=== PATIENT | male | born 1970 | race Caucasian/White ===

== ENCOUNTER 2022-03-15 16:30 | Observation (INO) ==
[2022-03-15] MEDS ORDERED: IOPAMIDOL 100 ML BOTTLE IV ONE (16:31)
[2022-03-15] MEDS ORDERED: ONDANSETRON 4 MG/2 ML VIAL IV ONE ×2 (16:43→20:12)
[2022-03-15] MEDS ORDERED: morphine 4 MG/ML VIAL IV ONE (16:43)
[2022-03-15] MEDS ORDERED: 0.9 % SODIUM CHLORIDE 2,000 ML IV ONE (16:43)
[2022-03-15 17:13] LABS: POC Calcium, Ionized 1.09 (1.16-1.32); POC Creatinine 0.8 (0.6-1.2); POC Potassium 4.5 (3.3-5.1)
[2022-03-15 18:20] LABS: Basophils # (Auto) 0.01 K/mcL (0.00-0.30); Basophils % (Auto) 0.1 % (0.0-2.0); Eosinophils # (Auto) 0.02 K/mcL (0.00-0.70); Eosinophils % (Auto) 0.3 % (0.0-7.0); Hematocrit 46.4 % (40.1-51.0); Hemoglobin 15.5 g/dL (13.7-17.5); Lymphocytes # (Auto) 0.95 K/mcL (1.50-4.80); Lymphocytes % (Auto) 13.2 % (15.5-49.0); Mean Cell Volume 94.9 fL (80.0-100.0); Mean Corpuscular HGB Conc 33.4 g/dL (31.0-36.0); Mean Platelet Volume 10.3 fL (8.8-12.5); Monocytes # (Auto) 0.48 K/mcL (0.10-0.90); Monocytes % (Auto) 6.7 % (1.0-12.0); Neutrophils % (Auto) 79.3 % (38.0-78.0); Platelet Count 212 K/mcL (140-440); RBC 4.89 M/mcL (4.63-6.08); Red Cell Distribution Width 12.6 % (11.5-14.5); WBC 7.2 K/mcL (4.5-11.0)
--- NOTE | 2022-03-15 18:24 | Emergency Department Note ---
HPI General Chief complaint: Nausea/Vomiting/Diarrhea Stated complaint: bowell obstruction Time Seen by Provider: 03/15/22 16:39 Source: patient Mode of arrival: ambulatory Limitations: no limitations History of Present Illness HPI Narrative: Mekhi Orellana is a 51-year-old male who presents emergency department from minor care complaining of "a bowel obstruction." The patient reports he began vomiting at 0 230 this morning, approximately 10 bouts until noon today. He denies any hematemesis or coffee-ground emesis. He states he additionally had a few bouts of diarrhea, that was also gone by noon. The patient reports lateral abdominal pain, and points toward his sacrum, where he underwent incision and drainage of pilonidal abscess yesterday. The patient additionally reports bloating and lower abdominal pain. He states he was able to take sips of Powerade and water, and the stay down for a few hours. He reports he was sent to the ED from minor care after an x-ray without oral contrast, due to provider concern for a bowel obstruction. The patient denies black and bloody stools, syncope, dizziness, heart palpitations, and all other acute complaints at this time. During history, the patient states to his , "will you please just tell her, I don't want to talk." Related Data Previous Rx's Medication Instructions Recorded levothyroxine 150 mcg capsule 150 mcg PO QDAY #90 caps 02/01/22 Allergies Allergy/AdvReac Type Severity Reaction Status Date / Time No Known Allergies Allergy Unknown Unknown Verified 03/15/22 16:35 Review of Systems ROS ROS Narrative: A comprehensive review of systems is obtained and found to be negative, except as per HPI. [facility] Narrative Patient History Narrative: Narrative: Medical/Surgical/Family History All Active Problems (Updated 03/15/22 @ 20:49 by Hailey Hubbard PA-C) Partial obstruction of small intestine (Acute) Small bowel obstruction (Acute) Sinusitis (Acute) Fatigue (Chronic) Knee pain (Chronic) Low back pain (Acute) Pilonidal abscess (Acute) Hypovitaminosis D (Chronic) Elevated ferritin level (Chronic) Hypogonadism in male (Chronic) Hyperthyroidism (Chronic) Hyperlipidemia (Chronic) Graves disease (Chronic) Medical History Fatigue Graves disease Recorded 11/19/05 Hyperlipidemia Hyperthyroidism Graves Disease Knee pain Low back pain Surgical History H/O hand surgery Right pointer finger reattached following table saw accident H/O knee surgery Right knee x5 No pertinent past surgical history Family History Father Idiopathic pulmonary fibrosis Stroke Aunt Idiopathic pulmonary fibrosis Sister Idiopathic pulmonary fibrosis Lupus Crohn disease Other No pertinent family history Social History Smoking Status: Smokeless tobacco Alcohol Intake Frequency: a few times a week Substance Use: does not use Exam Narrative Narrative: General: Alert, conversant, NAD HEENT: Mask in place per COVID protocol, EOMI, PERRL, anicteric sclerae Chest/respiratory: Symmetric chest wall expansion, CTAB, adequate tidal volume and respiratory effort, speaks in complete paragraphs without difficulty CV: RRR/no MRG, cap refill less than 2 seconds; palpable peripheral pulses Abdomen/GI: NABs, soft, ND, no scars noted; midline lower abdominal TTP without rebound or guarding Extremities/MSK: MAEW, normal gait Skin: Normal warm and dry, no jaundice General Limitations: no limitations Course Vital Signs Vital signs: Vital Signs Temperature 98.6 F 03/15/22 16:32 Pulse Rate 102 H 03/15/22 16:32 Respiratory Rate 18 03/15/22 16:32 Blood Pressure 109/76 03/15/22 16:32 Pulse Oximetry (%) 94 03/15/22 16:32 Oxygen Delivery Method 03/15/22 16:32 Temperature 98.6 F 03/15/22 16:32 Pulse Rate 85 03/15/22 17:46 Respiratory Rate 18 03/15/22 16:32 Blood Pressure 118/68 03/15/22 17:46 Pulse Oximetry (%) 94 03/15/22 17:46 Oxygen Delivery Method 03/15/22 16:32 [facility] MDM Narrative Medical decision making narrative: Mekhi Orellana is a 51-year-old male who presents emergency department c omplaining of cute onset abdominal pain at 230 this morning, with accompanying nausea, vomiting, and diarrhea. These associated symptoms resolved by about noon today. The patient has been anorexic and has only had a couple sips of water and Powerade that have stayed down. Other than an elevated blood glucose, the patient's labs are largely normal. CT exam with contrast of the abdomen and pelvis reveals a mild partial small bowel obstruction in the distal jejunum. Admission and treatment for this problem is discussed with the patient and his at length. This includes discussion of an NG tube to low intermittent wall suction, admission, and follow-up water-soluble contrast study. The patient states he does not feel he wishes to be admitted and wishes to discuss this with his . After their discussion, the patient states he agrees to admission, and Dr. Spring of the general surgery service is contacted. After discussing the patient's case in detail with Dr. Spring, he agrees to see the patient and admit him for treatment of a partial small bowel obstruction. Sepsis Sepsis Identified: No Lab Data Lab results reviewed: Yes I reviewed the patient's lab results. Result diagrams: 03/15/22 17:38 03/15/22 17:38 Labs: Lab Results 03/15/22 03/15/22 03/15/22 Range/Units 17:09 17:38 17:38 WBC 7.2 (4.5-11.0) K/mcL RBC 4.89 (4.63-6.08) M/mcL Hgb 15.5 (13.7-17.5) g/dL Hct 46.4 (40.1-51.0) % POC Hct 50.0 (41-55) MCV 94.9 (80.0-100.0) fL MCH 31.7 (26.0-34.0) pg MCHC 33.4 (31.0-36.0) g/dL RDW 12.6 (11.5-14.5) % Plt Count 212 (140-440) K/mcL MPV 10.3 (8.8-12.5) fL Immature Gran % (Auto) 0.4 (0.0-0.5) % Neut % (Auto) 79.3 H (38.0-78.0) % Lymph % (Auto) 13.2 L (15.5-49.0) % Parker % (Auto) 6.7 (1.0-12.0) % Eos % (Auto) 0.3 (0.0-7.0) % Baso % (Auto) 0.1 (0.0-2.0) % Lymph # (Auto) 0.95 L (1.50-4.80) K/mcL Parker # (Auto) 0.48 (0.10-0.90) K/mcL Eos # (Auto) 0.02 (0.00-0.70) K/mcL Baso # (Auto) 0.01 (0.00-0.30) K/mcL Immature Gran # 0.03 (0.00-0.05) K/mcl Absolute Neutrophils 5.70 (1.80-8.00) K/mcL VBG Lactic Acid 1.0 (0.5-2.0) mmol/L POC Sodium 138 (133-145) Sodium 135 (133-145) mmol/L POC Potassium 4.5 (3.3-5.1) Potassium 3.6 (3.3-5.1) mmol/L POC Chloride 101 (96-108) Chloride 97 (96-108) mmol/L Carbon Dioxide 28 (22-30) mmol/L POC Total CO2 28.0 (22-30) Anion Gap 10.0 (8.0-16.0) POC BUN 26 H (6-20) BUN 16 (6-20) mg/dL Creatinine 0.8 (0.7-1.2) mg/dL POC Creatinine 0.8 (0.6-1.2) GFR Calculation 102 Glucose 125 H (70-105) mg/dL POC Glucose 135 H (70-105) Calcium 8.4 L (8.6-10.4) mg/dL POC WB Ioniz Calcium 1.09 L (1.16-1.32) Total Bilirubin 1.3 H (0.1-1.0) mg/dL AST 15 (<40) U/L ALT 21 (<40) U/L Alkaline Phosphatase 73 (39-117) U/L Total Protein 6.9 (5.9-8.4) gm/dL Albumin 3.6 (3.2-5.2) gm/dL Globulin 3.3 (2.2-3.7) gm/dL Albumin/Globulin Ratio 1.1 (1.0-2.3) Lipase 14 (7-60) U/L POC Troponin I (0.00-0.08) 03/15/22 Range/Units 17:42 WBC (4.5-11.0) K/mcL RBC (4.63-6.08) M/mcL Hgb (13.7-17.5) g/dL Hct (40.1-51.0) % POC Hct (41-55) MCV (80.0-100.0) fL MCH (26.0-34.0) pg MCHC (31.0-36.0) g/dL RDW (11.5-14.5) % Plt Count (140-440) K/mcL MPV (8.8-12.5) fL Immature Gran % (Auto) (0.0-0.5) % Neut % (Auto) (38.0-78.0) % Lymph % (Auto) (15.5-49.0) % Parker % (Auto) (1.0-12.0) % Eos % (Auto) (0.0-7.0) % Baso % (Auto) (0.0-2.0) % Lymph # (Auto) (1.50-4.80) K/mcL Parker # (Auto) (0.10-0.90) K/mcL Eos # (Auto) (0.00-0.70) K/mcL Baso # (Auto) (0.00-0.30) K/mcL Immature Gran # (0.00-0.05) K/mcl Absolute Neutrophils (1.80-8.00) K/mcL VBG Lactic Acid (0.5-2.0) mmol/L POC Sodium (133-145) Sodium (133-145) mmol/L POC Potassium (3.3-5.1) Potassium (3.3-5.1) mmol/L POC Chloride (96-108) Chloride (96-108) mmol/L Carbon Dioxide (22-30) mmol/L POC Total CO2 (22-30) Anion Gap (8.0-16.0) POC BUN (6-20) BUN (6-20) mg/dL Creatinine (0.7-1.2) mg/dL POC Creatinine (0.6-1.2) GFR Calculation Glucose (70-105) mg/dL POC Glucose (70-105) Calcium (8.6-10.4) mg/dL POC WB Ioniz Calcium (1.16-1.32) Total Bilirubin (0.1-1.0) mg/dL AST (<40) U/L ALT (<40) U/L Alkaline Phosphatase (39-117) U/L Total Protein (5.9-8.4) gm/dL Albumin (3.2-5.2) gm/dL Globulin (2.2-3.7) gm/dL Albumin/Globulin Ratio (1.0-2.3) Lipase (7-60) U/L POC Troponin I < 0.02 (0.00-0.08) Radiology Data Radiology results reviewed: Yes I reviewed the patient's radiology results. Radiology results narrative: Date of Service:03/15/22 Procedure(s):CT abdomen pelvis w con CLINICAL INFORMATION: Abdominal pain COMPARISON: None. TECHNIQUE: Following enteric contrast, 80 cc of Isovue-370 were injected intravenously, and 60 seconds later, 0.625 mm helical slices were obtained from the mid heart through the subtrochanteric regions. Following reconstruction, 2.5 mm sagittal, coronal and axial reformatted images were processed and reviewed at bone, lung and soft tissue windows. Five minutes later, 0.625 mm helical slices were obtained from the mid heart through the kidneys and viewed at soft tissue windows.The exam was performed using radiation dose optimization techniques including, but not limited to, automated exposure control, adjustment of the mA and/or kV according to patient size and use of iterative reconstruction technique. FINDINGS: The lung bases show scattered atelectasis.. No effusions. The visualized heart is normal in size with no calcific plaque in the coronary arteries.. Abdominal images show mild fatty change within the liver, but no focal hepatic lesions. A few tiny stones layer within the gallbladder neck. The gallbladder is, otherwise, normal. Intrahepatic and common bile ducts are normal caliber: CBD is 5 mm. The pancreas, both adrenal glands, spleen and aorta, including aortic branches, are normal in size, configuration and attenuation without focal lesion. A 20 mm cyst present anterior mid right kidney and a 3.8 cm simple cyst lateral mid left kidney noted. There is no significant renal abnormality. There is no free air, free fluid or adenopathy Pelvic images show prostate, seminal vesicles and urinary bladder are normal. Multiple sigmoid diverticula appreciated but no evidence of diverticulitis. The remaining large bowel is normal. The stomach, duodenum and jejunum are mildly dilated to a transition point in the distal jejunum the right mesenteric cavity best seen on coronal image 76. There may be adhesions or strictures in this region. The distal small bowel is decompressed and there is minimal stool within the colon. Bone windows show chronic bilateral L5-S1 spondylolysis with 3 mm spondylolisthesis. It results in mild bilateral IV foraminal narrowing. No other osseous abnormalities. IMPRESSION: 1. Mild partial small bowel obstruction likely due to adhesions or stricture in the distal jejunum located within the right mesenteric cavity. No evidence of free fluid or free air. 2. Cholelithiasis. Few tiny stones seen within the gallbladder. 3. Mild fatty change within the liver. 4. Chronic bilateral L5-S1 spondylolysis. Interpreted and Authenticated by: Navin Figueroa 03/15/22 Discharge Plan Patient/Caregiver Discharge Instructions Pt seen by MACARONI PRESS OPERATOR/PA only: Yes Clinical Impression: Partial obstruction of small intestine Patient Disposition: Still a Patient Follow up with: Terrence Cote MD [Primary Care Provider] - Prescriptions: No Action levothyroxine 150 mcg capsule 150 mcg PO QDAY Qty: 90 0RF
--- NOTE | 2022-03-15 18:27 | Cat Scan Report ---
CLINICAL INFORMATION: Abdominal pain COMPARISON: None. TECHNIQUE: Following enteric contrast, 80 cc of Isovue-370 were injected intravenously, and 60 seconds later, 0.625 mm helical slices were obtained from the mid heart through the subtrochanteric regions. Following reconstruction, 2.5 mm sagittal, coronal and axial reformatted images were processed and reviewed at bone, lung and soft tissue windows. Five minutes later, 0.625 mm helical slices were obtained from the mid heart through the kidneys and viewed at soft tissue windows.The exam was performed using radiation dose optimization techniques including, but not limited to, automated exposure control, adjustment of the mA and/or kV according to patient size and use of iterative reconstruction technique. FINDINGS: The lung bases show scattered atelectasis.. No effusions. The visualized heart is normal in size with no calcific plaque in the coronary arteries.. Abdominal images show mild fatty change within the liver, but no focal hepatic lesions. A few tiny stones layer within the gallbladder neck. The gallbladder is, otherwise, normal. Intrahepatic and common bile ducts are normal caliber: CBD is 5 mm. The pancreas, both adrenal glands, spleen and aorta, including aortic branches, are normal in size, configuration and attenuation without focal lesion. A 20 mm cyst present anterior mid right kidney and a 3.8 cm simple cyst lateral mid left kidney noted. There is no significant renal abnormality. There is no free air, free fluid or adenopathy Pelvic images show prostate, seminal vesicles and urinary bladder are normal. Multiple sigmoid diverticula appreciated but no evidence of diverticulitis. The remaining large bowel is normal. The stomach, duodenum and jejunum are mildly dilated to a transition point in the distal jejunum the right mesenteric cavity best seen on coronal image 76. There may be adhesions or strictures in this region. The distal small bowel is decompressed and there is minimal stool within the colon. Bone windows show chronic bilateral L5-S1 spondylolysis with 3 mm spondylolisthesis. It results in mild bilateral IV foraminal narrowing. No other osseous abnormalities. IMPRESSION: 1. Mild partial small bowel obstruction likely due to adhesions or stricture in the distal jejunum located within the right mesenteric cavity. No evidence of free fluid or free air. 2. Cholelithiasis. Few tiny stones seen within the gallbladder. 3. Mild fatty change within the liver. 4. Chronic bilateral L5-S1 spondylolysis. Interpreted and Authenticated by: Navin Figueroa 03/15/22
[2022-03-15 18:40] LABS: ALT/SGPT 21 U/L (<40); AST/SGOT 15 U/L (<40); Albumin 3.6 gm/dL (3.2-5.2); Albumin/Globulin Ratio 1.1 (1.0-2.3); Alkaline Phosphatase 73 U/L (39-117); Bilirubin,Total 1.3 mg/dL (0.1-1.0); Blood Urea Nitrogen 16 mg/dL (6-20); Calcium 8.4 mg/dL (8.6-10.4); Carbon Dioxide 28 mmol/L (22-30); Chloride 97 mmol/L (96-108); Globulin 3.3 gm/dL (2.2-3.7); Glomerular Filtration Rate 102; Glucose 125 mg/dL (70-105)
--- NOTE | 2022-03-15 20:06 | General Surg History&Physical ---
HPI History of Present Illness Patient information: Note initiated : 03/15/22 at 8:03 pm Service Date, if different from initiated Date: [] Patient: Mekhi Orellana a 51 y/o M admitted on for bowell obstruction. Chief Complaint: [] Chief complaint: Abdominal pain, nausea vomiting History of present illness: Mr. Orellana is a 51 year old M who presents with 1 day history of progressive nausea and emesis along with diarrhea. He reports that he has some periumbilical abdominal pain which is gradually gotten worse throughout the day. Patient denies any prior history of similar sort of pain or problems. Patient had a pilonidal cyst drained in urgent care yesterday which she is on sure whether this is contributing to his current problems. He denies fevers or chills, he does have a history of ulcer disease which has been treated in the past. He denies any current or past surgical history. Review of Systems Review of systems: All systems are reviewed, negative other than above PFSH PFSH All Active Problems Small bowel obstruction (Acute) Sinusitis (Acute) Fatigue (Chronic) Knee pain (Chronic) Low back pain (Acute) Pilonidal abscess (Acute) Hypovitaminosis D (Chronic) Elevated ferritin level (Chronic) Hypogonadism in male (Chronic) Hyperthyroidism (Chronic) Hyperlipidemia (Chronic) Graves disease (Chronic) Medical History Fatigue Graves disease Recorded 11/19/05 Hyperlipidemia Hyperthyroidism Graves Disease Knee pain Low back pain Surgical History H/O hand surgery Right pointer finger reattached following table saw accident H/O knee surgery Right knee x5 No pertinent past surgical history Family History Father Idiopathic pulmonary fibrosis Stroke Aunt Idiopathic pulmonary fibrosis Sister Idiopathic pulmonary fibrosis Lupus Crohn disease Other No pertinent family history Social History household members: spouse lives independently: Yes marital status: occupational status: employed occupation: [employer] smoking status: Smokeless tobacco Smokeless tobacco user details: 1 can per 3 days alcohol intake frequency: a few times a week substance use type: does not use MEDS/ALLERGIES Home Medications and Allergies Home Medications Medication Instructions Recorded Confirmed Type levothyroxine 150 mcg capsule 150 mcg PO QDAY #90 caps 02/01/22 03/15/22 Rx Allergies Allergy/AdvReac Type Severity Reaction Status Date / Time No Known Allergies Allergy Unknown Unknown Verified 03/15/22 16:35 Physical Examination Vital Signs Vital signs: Temp Pulse Resp BP Pulse Ox O2 Del Method 98.6 F 85 18 136/86 94 03/15/22 16:32 03/15/22 17:46 03/15/22 16:32 03/15/22 19:31 03/15/22 17:46 03/15/22 16:32 General physical appearance General physical exam: well developed, well nourished and no distress Eyes Eye exam: PERRL and normal ocular movement ENT ENT exam: normal pinna, normal nares, normal mucosa, no hearing loss and no congestion Head Head exam IM: Present atraumatic and normocephalic Neck Neck exam: no masses, no bruits, trachea midline, no lymphadenopathy and no venous distension Cardiovascular Cardiovascular exam IM: Present normal rate and rhythm Respiratory Respiratory exam: normal expansion, normal respiratory effort, clear to percussion and clear to auscultation Abdomen Abdomen: Present soft, non tender and bowel sounds Hernia: Present none Genitourinary Genitourinary (Male): Present normal penis with no external lesions Rectum Rectum: Present normal sphincter tone, no hemorrhoids, no tenderness, no masses and no bleeding Integumentary Integumentary: Present no rash, no growths and no abnormal pigmentation Neurologic Neurologic: Present normal coordination and normal sensation Musculoskeletal Musculoskeletal: Present normal gait and normal posture Psychiatric Psychiatric: Present oriented to time, oriented to person, oriented to place, speech is normal and memory intact Results Labs Result diagrams: 03/15/22 17:38 03/15/22 17:38 Labs: Abnormal lab results 03/15/22 03/15/22 03/15/22 Range/Units 17:09 17:38 17:38 Neut % (Auto) 79.3 H (38.0-78.0) % Lymph % (Auto) 13.2 L (15.5-49.0) % Lymph # (Auto) 0.95 L (1.50-4.80) K/mcL POC BUN 26 H (6-20) Glucose 125 H (70-105) mg/dL POC Glucose 135 H (70-105) Calcium 8.4 L (8.6-10.4) mg/dL POC WB Ioniz Calcium 1.09 L (1.16-1.32) Total Bilirubin 1.3 H (0.1-1.0) mg/dL Diabetes panel 03/15/22 Range/Units 17:38 Sodium 135 (133-145) mmol/L Potassium 3.6 (3.3-5.1) mmol/L Chloride 97 (96-108) mmol/L Carbon Dioxide 28 (22-30) mmol/L BUN 16 (6-20) mg/dL Creatinine 0.8 (0.7-1.2) mg/dL Glucose 125 H (70-105) mg/dL Calcium 8.4 L (8.6-10.4) mg/dL AST 15 (<40) U/L ALT 21 (<40) U/L Alkaline Phosphatase 73 (39-117) U/L Total Protein 6.9 (5.9-8.4) gm/dL Albumin 3.6 (3.2-5.2) gm/dL Calcium panel 03/15/22 Range/Units 17:38 Calcium 8.4 L (8.6-10.4) mg/dL Albumin 3.6 (3.2-5.2) gm/dL Pituitary panel 03/15/22 Range/Units 17:38 Sodium 135 (133-145) mmol/L Potassium 3.6 (3.3-5.1) mmol/L Chloride 97 (96-108) mmol/L Carbon Dioxide 28 (22-30) mmol/L BUN 16 (6-20) mg/dL Creatinine 0.8 (0.7-1.2) mg/dL Glucose 125 H (70-105) mg/dL Calcium 8.4 L (8.6-10.4) mg/dL Adrenal panel 03/15/22 Range/Units 17:38 Sodium 135 (133-145) mmol/L Potassium 3.6 (3.3-5.1) mmol/L Chloride 97 (96-108) mmol/L Carbon Dioxide 28 (22-30) mmol/L BUN 16 (6-20) mg/dL Creatinine 0.8 (0.7-1.2) mg/dL Glucose 125 H (70-105) mg/dL Calcium 8.4 L (8.6-10.4) mg/dL Total Bilirubin 1.3 H (0.1-1.0) mg/dL AST 15 (<40) U/L ALT 21 (<40) U/L Alkaline Phosphatase 73 (39-117) U/L Total Protein 6.9 (5.9-8.4) gm/dL Albumin 3.6 (3.2-5.2) gm/dL All other labs normal. Imaging CT scan - abdomen: image reviewed A/P Assessment and plan (1) Small bowel obstruction: Plan: This is a pleasant 51-year-old gentleman without prior surgical history who presents with signs and symptoms most consistent with gastroenteritis. Patient underwent a CT scan done by the emergency room, is read by radiology as a partial small bowel obstruction. Given the read on CT scan despite what history and physical appears to be just gastroenteritis we will treat as a partial small bowel obstruction with NG tube decompression, and p.o. and a small bowel follow-through first thing in the morning. Further treatment will be determined based on findings of the small bowel follow-through. Status: Acute Time Spent With Patient Time: Total time spent is greater than 50% in coordination of care (as documented) at patient's floor/unit and/or counseling patient:
[2022-03-15] MEDS ORDERED: HYDROmorphone 0.5 MG/0.5 ML SYRINGE IV ONE (20:13)
[2022-03-15] MEDS ORDERED: BENZOCAINE 1 SPRAY 20% BOTTLE TOPICAL ONE (21:00)
[2022-03-15] MEDS ORDERED: LIDOCAINE VISCOUS 2% 15 ML UNIT DOSE CUP PO ONE (21:02)
[2022-03-15] MEDS: LACTATED RINGERS 1,000 ML IV SCH (21:30)
[2022-03-15] MEDS: HYDROmorphone 0.5 MG/0.5 ML SYRINGE IV PRN (23:05)
[2022-03-16] MEDS: HYDROmorphone 0.5 MG/0.5 ML SYRINGE IV PRN ×4 (01:56→11:21)
[2022-03-16] MEDS: LACTATED RINGERS 1,000 ML IV SCH ×2 (04:07→04:40)
[2022-03-16] MEDS: ONDANSETRON 4 MG/2 ML VIAL IV PRN ×2 (04:40→08:28)
--- NOTE | 2022-03-16 05:46 | XRay Report ---
CLINICAL INFORMATION: NG tube placement COMPARISON: None. FINDINGS: NG tube overlies the gastric body. Stomach and proximal small bowel are moderately dilated with air-fluid levels with decompression of distal small bowel and colon. Findings compatible with high-grade partial small bowel obstruction. No free air. IMPRESSION: NG tube in proper position. High-grade partial mid small bowel obstruction pattern stable Interpreted and Authenticated by: Navin Figueroa 03/16/22
[2022-03-16] MEDS ORDERED: SUCRETS LOZENGE PO PRN (09:49)
--- NOTE | 2022-03-16 14:44 | Discharge Summary ---
Discharge Provider Provider IMPORTANT FOLLOW-UP INFORMATION FOR PCP: Patient information: Note initiated : 03/16/22 at 2:44 pm Service Date, if different from initiated Date: [] Patient: Mekhi Orellana 51 y/o M admitted on 03/15/22 for bowell obstruction. Chief Complaint: [] Date of admission: 03/15/22 21:25 Discharge date: 03/16/22 Primary care physician: Terrence Cote MD Consults: 03/15/22 Consult to Physician [CONS] Stat Comment: Consulting Provider: Harjit Spring Reason For Exam: Physician to Consult COURSE Hospital Course Hospital course: Patient admitted with psbo, sbft negative, patient feels better. Discharge diagnosis: resloved sbo Time Spent with Patient Time attestation: Total time spent providing and/or coordinating discharge services: Time spent: Less than 30 minutes Physical Examination Vital Signs Vital signs: Temp Pulse Resp BP Pulse Ox O2 Del Method O2 Flow Rate 98.3 F 75 12 138/74 99 2 03/16/22 12:00 03/16/22 12:00 03/16/22 12:00 03/16/22 12:00 03/16/22 12:00 03/16/22 12:00 03/15/22 20:39 Discharge Plan Patient/Caregiver Discharge Instructions Activity: increase activity as tolerated Diet: Regular Diet Activity Restrictions/Additional Instructions: follow up with pcp prn Prescriptions: No Action levothyroxine 150 mcg capsule 150 mcg PO QDAY Qty: 90 0RF Follow Up Plan Follow up with: Terrence Cote MD [Primary Care Provider] - Patient Disposition: Home, Self-Care Discharge Orders: Discharge Order (Routine); Ordered 03/16/22 Ordered By: Harjit Spring Pending Pending Pending: Resuscitation Status Resuscitate (Full Code) Diet Clear Liquid Diet Start Sat Mar 16 1400 Hydromorphone HCl (Hydromorphone 0.5 Mg/0.5 Ml Syringe) 0.5 mg IV Q2HP PRN; Protocol PRN Reason: Per Pain Protocol Last Admin: 03/16/22 11:21 Dose: 0.5 mg Documented By: Admin: 03/16/22 08:02 Dose: 0.5 mg Documented By: Admin: 03/16/22 04:40 Dose: 0.5 mg Documented By: Admin: 03/16/22 01:56 Dose: 0.5 mg Documented By: Admin: 03/15/22 23:05 Dose: 0.5 mg Documented By: NADEEM Lactated Ringer's (Lactated Ringers) 1,000 mls @ 125 mls/hr IV .Q8H ZAKIYA Last Admin: 03/16/22 04:40 Dose: 125 mls/hr Documented By: Infusion: 03/16/22 04:40 Dose: 125 mls/hr Documented By: Admin: 03/16/22 04:07 Dose: Not Given Documented By: Admin: 03/15/22 21:30 Dose: 125 mls/hr Documented By: NADEEM Ondansetron HCl (Ondansetron 4 Mg/2 Ml Vial) 4 mg IV Q6HP PRN PRN Reason: Nausea And Vomiting Last Admin: 03/16/22 08:28 Dose: 4 mg Documented By: Admin: 03/16/22 04:40 Dose: 4 mg Documented By: NADEEM Shift Summary 03/16/22 04:08 Shift Summary by Marnie Kent Addendum entered by Marnie Kent RN 03/16/22 05:59: Pt BS for 446, denies urge to urinate, states he will try "in a little bit". Urinal within reach at bedside. Refusing walks. Original Note: Primary Diagnosis: partial SBO, gastroenteritis Registration Status: Date of Surgery (if applicable): n/a Pertinent Medical Dx/Issue(s): Graves disease, gastric ulcers Med management (antibiotics, diuretics, BP): bowel rest with antiemetics, pain management, and IVF Skin/Wound Care: superior sacral wound from 03/14 I&D to pilonidal cyst - packed and covered in guaze/medipore Vital Signs with Trends: VSS on RA O2, liter flow/saturations: RA Pain management (acute vs. chronic): dilaudid 0.5mg IV for epigastric pain, also relieved with repositioning and upper body elevation Lab/Rad (abnormals, trends): WBC 7.2, Ca+ 8.4 Neuro/Mental Status: A/Ox4, drowsy, resistant to treatment plan, but responds to is on board with treatment plan Urinary Elimination Device: urinal Urinary output greater than 30mL/hr? Date of last BM: 03/15 diarrhea, reports episodes of fecal incont Lines/Tubes: LFA PIV with LR @125/hr. L nare NGT to LIS with clear/green output Activity: SBA to BSC Recommendations/questions for MD: Discharge Plan (needs, disposition, etc): home with family when medically cleared Plan for small bowel follow-thru this am Initialized on 03/16/22 04:08 - END OF NOTE
--- NOTE | 2022-03-16 15:56 | XRay Report ---
CLINICAL INFORMATION: Partial small bowel obstruction COMPARISON: Abdomen and pelvic CT 03/15/2022 TECHNIQUE: Following rod pointer imaging, enteric contrast was administered through NG tube and serial imaging was obtained for a total of three hours and 15 minutes over the abdomen and pelvis. FINDINGS: The stomach, duodenum and jejunum are moderately dilated to the transition point in the right mid abdomen. The distal small bowel and colon are markedly decompressed. Small amount of contrast is finally seen within the right colon on the delayed three hour 50 minute film. IMPRESSION: High-grade partial small bowel obstruction of the proximal ileum. Interpreted and Authenticated by: Navin Figueroa 03/16/22
== END 2022-03-16 15:00 | disposition home or self-care (01) ==
LOC: ED 16:30 → INTOOBSV 20:00 → MEDSUR 21:25
PROVIDERS: ADMIT Surgery; ATTEND Surgery